=== PATIENT | male | born 1965 | race Caucasian/White ===

== ENCOUNTER 2018-03-07 14:16 | Outpatient (CLI) | payer BC, SELFPAY ==
[2018-03-07 14:41] LABS: Abs Immature Grans 0.02 k/cumm (0.0-0.09); Absolute Basophil Count 0.02 k/cumm (0.0-0.2); Absolute Eosinophil Count 0.67 k/cumm (0.0-0.7); Absolute Lymphocyte Count 1.57 k/cumm (1.2-3.4); Absolute Monocyte Count 0.39 k/cumm (0.11-0.7); Absolute Neutrophil Count 2.93 k/cumm (1.2-6.7); Basophils % 0.4; HCT 37.7 % (40.0-50.0); HGB 12.7 g/dL (13.5-17.5); Immature Grans % 0.4; Mean Corp. HGB Concentration 33.7 g/dL (32.0-36.0); Mean Corpuscular Hemoglobin 31.6 pg (27.0-33.0); Mean Corpuscular Volume 93.8 fL (80-95); Mean Platelet Volume 9.2 fL (8.0-11.0); Neutrophils % 52.2; Platelet Count 218 x1000/uL (130-400); RBC 4.02 m/cumm (4.50-6.00); RBC Distribution Width 13.6 % (11.8-14.1)
[2018-03-07 14:54] LABS: ALT 48 U/L (12-78); AST 29 U/L (15-37); Albumin 3.7 g/dL (3.4-5.0); Alkaline Phosphatase 120 U/L (46-116); Anion Gap 6.1 mmol/L (3-11); BUN 26 mg/dL (7-18); Bilirubin, Total 0.3 mg/dL (0.2-1.0); CO2 28.9 mmol/L (21.0-32.0); CREATININE 1.04 mg/dL (0.70-1.30); Calcium 8.8 mg/dL (8.5-10.1); Chloride 103 mmol/L (98-107); Glucose 90 mg/dL (70-100); Magnesium 1.4 mg/dL (1.8-2.4); Potassium 4.4 mmol/L (3.5-5.1); Sodium 138 mmol/L (136-145); Total Protein 7.4 g/dL (6.4-8.2)
== END 2018-03-07 14:36 ==
PROVIDERS: Visit Provider Nurse Practitioner Adult Health
DX: C34.91 Malignant neoplasm of unspecified part of right bronchus or lung (principal); J44.9 Chronic obstructive pulmonary disease, unspecified; S81.801A Unspecified open wound, right lower leg, initial encounter
CPT/HCPCS: 36415; 80053; 83735; 85025

== ENCOUNTER 2018-03-29 12:23 | Outpatient (CLI) | payer BC, SELFPAY ==
[2018-03-29 12:43] LABS: Abs Immature Grans 0.01 k/cumm (0.0-0.09); Absolute Basophil Count 0.02 k/cumm (0.0-0.2); Absolute Eosinophil Count 0.09 k/cumm (0.0-0.7); Absolute Lymphocyte Count 0.77 k/cumm (1.2-3.4); Absolute Monocyte Count 0.09 k/cumm (0.11-0.7); Absolute Neutrophil Count 0.69 k/cumm (1.2-6.7); Basophils % 1.2; Eosinophils % 5.4; HCT 33.5 % (40.0-50.0); HGB 11.6 g/dL (13.5-17.5); Immature Grans % 0.6; Lymphocytes % 46.1; Mean Corp. HGB Concentration 34.6 g/dL (32.0-36.0); Mean Corpuscular Hemoglobin 31.9 pg (27.0-33.0); Mean Platelet Volume 9.6 fL (8.0-11.0); Monocytes % 5.4; Neutrophils % 41.3; RBC 3.64 m/cumm (4.50-6.00); RBC Distribution Width 12.7 % (11.8-14.1)
[2018-03-29 13:01] LABS: White Blood Cell Count 1.67 k/cumm (4.4-10.8)
[2018-03-29 13:02] LABS: Platelet Count 106 x1000/uL (130-400)
[2018-03-29 13:03] LABS: ALT 36 U/L (12-78); AST 19 U/L (15-37); Albumin 3.4 g/dL (3.4-5.0); Alkaline Phosphatase 102 U/L (46-116); BUN 35 mg/dL (7-18); Bilirubin, Total 0.3 mg/dL (0.2-1.0); Calcium 8.5 mg/dL (8.5-10.1); Chloride 105 mmol/L (98-107); Diff Comment Diff Reviewed; Glucose 129 mg/dL (70-100); Magnesium 1.3 mg/dL (1.8-2.4); Potassium 3.8 mmol/L (3.5-5.1); RBC Morphology Normal; Sodium 141 mmol/L (136-145); Total Protein 6.7 g/dL (6.4-8.2)
== END 2018-03-29 12:43 ==
PROVIDERS: PCP Physician Assistant; Visit Provider Nurse Practitioner Adult Health
DX: S81.801A Unspecified open wound, right lower leg, initial encounter (principal); J44.9 Chronic obstructive pulmonary disease, unspecified; C34.91 Malignant neoplasm of unspecified part of right bronchus or lung
CPT/HCPCS: 36415; 80053; 83735; 85025

== ENCOUNTER 2018-04-15 09:34 | Outpatient (CLI) | payer BC, SELFPAY ==
[2018-04-15 10:01] LABS: Abs Immature Grans 0.14 k/cumm (0.0-0.09); HCT 37.7 % (40.0-50.0); HGB 12.7 g/dL (13.5-17.5); Mean Corp. HGB Concentration 33.7 g/dL (32.0-36.0); Mean Corpuscular Hemoglobin 31.1 pg (27.0-33.0); Mean Corpuscular Volume 92.4 fL (80-95); Mean Platelet Volume 9.4 fL (8.0-11.0); Platelet Count 263 x1000/uL (130-400); RBC 4.08 m/cumm (4.50-6.00); RBC Distribution Width 13.7 % (11.8-14.1); White Blood Cell Count 5.63 k/cumm (4.4-10.8)
[2018-04-15 10:14] LABS: ALT 34 U/L (12-78); AST 30 U/L (15-37); Albumin 3.5 g/dL (3.4-5.0); Alkaline Phosphatase 110 U/L (46-116); Anion Gap 7.6 mmol/L (3-11); BUN 24 mg/dL (7-18); Bilirubin, Total 0.2 mg/dL (0.2-1.0); CO2 31.4 mmol/L (21.0-32.0); CREATININE 1.09 mg/dL (0.70-1.30); Calcium 8.7 mg/dL (8.5-10.1); Chloride 101 mmol/L (98-107); Glucose 96 mg/dL (70-100); Magnesium 1.7 mg/dL (1.8-2.4); Potassium 4.1 mmol/L (3.5-5.1); Sodium 140 mmol/L (136-145); Total Protein 7.4 g/dL (6.4-8.2)
[2018-04-15 10:27] LABS: Absolute Basophil Count 0.06 k/cumm (0.0-0.2); Absolute Eosinophil Count 0.06 k/cumm (0.0-0.7); Absolute Lymphocyte Count 0.73 k/cumm (1.2-3.4); Absolute Monocyte Count 0.56 k/cumm (0.11-0.7); Absolute Neutrophil Count 4.17 k/cumm (1.2-6.7); Diff Comment Manual Differential; RBC Morphology Normal
== END 2018-04-15 09:54 ==
PROVIDERS: PCP Physician Assistant; Visit Provider Nurse Practitioner Adult Health
DX: C34.91 Malignant neoplasm of unspecified part of right bronchus or lung (principal); S81.801A Unspecified open wound, right lower leg, initial encounter; J44.9 Chronic obstructive pulmonary disease, unspecified
CPT/HCPCS: 36415; 80053; 83735; 85025

== ENCOUNTER 2018-04-26 14:07 | Outpatient (CLI) | payer BC, SELFPAY ==
[2018-04-26 14:32] LABS: Absolute Basophil Count 0.01 k/cumm (0.0-0.2); Absolute Eosinophil Count 0.05 k/cumm (0.0-0.7); HCT 27.8 % (40.0-50.0); HGB 9.8 g/dL (13.5-17.5); Mean Corp. HGB Concentration 35.3 g/dL (32.0-36.0); Mean Corpuscular Hemoglobin 31.7 pg (27.0-33.0); Mean Platelet Volume 10.4 fL (8.0-11.0); RBC 3.09 m/cumm (4.50-6.00); RBC Distribution Width 12.6 % (11.8-14.1)
[2018-04-26 14:42] LABS: ALT 45 U/L (12-78); AST 30 U/L (15-37); Albumin 3.1 g/dL (3.4-5.0); Alkaline Phosphatase 97 U/L (46-116); Anion Gap 7.4 mmol/L (3-11); BUN 20 mg/dL (7-18); Bilirubin, Total 0.2 mg/dL (0.2-1.0); CO2 29.6 mmol/L (21.0-32.0); CREATININE 0.91 mg/dL (0.70-1.30); Calcium 8.5 mg/dL (8.5-10.1); Chloride 102 mmol/L (98-107); Glucose 107 mg/dL (70-100); Magnesium 1.4 mg/dL (1.8-2.4); Potassium 4.4 mmol/L (3.5-5.1); Sodium 139 mmol/L (136-145); Total Protein 6.4 g/dL (6.4-8.2)
[2018-04-26 14:57] LABS: Absolute Neutrophil Count 0.35 k/cumm (1.2-6.7); Platelet Count 50 x1000/uL (130-400); White Blood Cell Count 0.69 k/cumm (4.4-10.8)
[2018-04-26 14:58] LABS: Absolute Lymphocyte Count 0.22 k/cumm (1.2-3.4); Absolute Monocyte Count 0.06 k/cumm (0.11-0.7); Diff Comment Manual Differential; RBC Morphology Normal
== END 2018-04-26 14:27 ==
PROVIDERS: PCP Physician Assistant; Visit Provider Nurse Practitioner Adult Health
DX: C34.91 Malignant neoplasm of unspecified part of right bronchus or lung (principal); J44.9 Chronic obstructive pulmonary disease, unspecified; S81.801A Unspecified open wound, right lower leg, initial encounter
CPT/HCPCS: 36415; 80053; 83735; 85025

== ENCOUNTER 2018-05-03 12:29 | Outpatient (CLI) | payer BC, SELFPAY ==
[2018-05-03 13:06] LABS: HCT 29.6 % (40.0-50.0); HGB 10.4 g/dL (13.5-17.5); Mean Corp. HGB Concentration 35.1 g/dL (32.0-36.0); Mean Corpuscular Hemoglobin 31.7 pg (27.0-33.0); Mean Corpuscular Volume 90.2 fL (80-95); Mean Platelet Volume 9.1 fL (8.0-11.0); Platelet Count 150 x1000/uL (130-400); RBC 3.28 m/cumm (4.50-6.00); RBC Distribution Width 13.4 % (11.8-14.1)
[2018-05-03 13:19] LABS: ALT 36 U/L (12-78); AST 30 U/L (15-37); Albumin 3.2 g/dL (3.4-5.0); Alkaline Phosphatase 114 U/L (46-116); Anion Gap 7.3 mmol/L (3-11); BUN 21 mg/dL (7-18); Bilirubin, Total 0.4 mg/dL (0.2-1.0); CO2 30.7 mmol/L (21.0-32.0); Calcium 8.8 mg/dL (8.5-10.1); Chloride 100 mmol/L (98-107); Glucose 76 mg/dL (70-100); Potassium 4.2 mmol/L (3.5-5.1); Sodium 138 mmol/L (136-145); Total Protein 6.9 g/dL (6.4-8.2)
[2018-05-03 13:20] LABS: INR 1.8 (1.0-3.5); Prothrombin Time 17.6 sec (9.3-10.8)
[2018-05-03 13:55] LABS: White Blood Cell Count 0.77 k/cumm (4.4-10.8)
[2018-05-03 13:56] LABS: Diff Comment Manual Differential; Polychromasia Present
[2018-05-03 13:57] LABS: Absolute Basophil Count 0.02 k/cumm (0.0-0.2); Absolute Eosinophil Count 0.05 k/cumm (0.0-0.7); Absolute Lymphocyte Count 0.32 k/cumm (1.2-3.4); Absolute Monocyte Count 0.22 k/cumm (0.11-0.7); Absolute Neutrophil Count 0.15 k/cumm (1.2-6.7); Atypical Lymphocytes % 2
[2018-05-03 16:01] LABS: Magnesium 1.7 mg/dL (1.8-2.4)
[2018-05-03 23:03] LABS: Nucleated RBC 6 /100WBC
== END 2018-05-03 12:49 ==
PROVIDERS: PCP Physician Assistant; Visit Provider Nurse Practitioner Adult Health
DX: C34.91 Malignant neoplasm of unspecified part of right bronchus or lung (principal); S81.801A Unspecified open wound, right lower leg, initial encounter; J44.9 Chronic obstructive pulmonary disease, unspecified
CPT/HCPCS: 36415; 80053; 83735; 85025; 85610

== ENCOUNTER 2018-05-13 12:39 | Outpatient (CLI) | payer BC, SELFPAY ==
[2018-05-13 13:14] LABS: Abs Immature Grans 0.01 k/cumm (0.0-0.09); Absolute Basophil Count 0.03 k/cumm (0.0-0.2); Absolute Eosinophil Count 0.04 k/cumm (0.0-0.7); Absolute Lymphocyte Count 0.75 k/cumm (1.2-3.4); Absolute Monocyte Count 0.58 k/cumm (0.11-0.7); Basophils % 0.8; HCT 31.2 % (40.0-50.0); HGB 10.7 g/dL (13.5-17.5); Immature Grans % 0.3; Lymphocytes % 19.2; Mean Corp. HGB Concentration 34.3 g/dL (32.0-36.0); Mean Corpuscular Volume 93.4 fL (80-95); Mean Platelet Volume 9.3 fL (8.0-11.0); Monocytes % 14.8; Neutrophils % 63.9; Platelet Count 233 x1000/uL (130-400); RBC 3.34 m/cumm (4.50-6.00); RBC Distribution Width 15.2 % (11.8-14.1); White Blood Cell Count 3.91 k/cumm (4.4-10.8)
[2018-05-13 13:32] LABS: ALT 35 U/L (12-78); AST 21 U/L (15-37); Albumin 3.3 g/dL (3.4-5.0); Alkaline Phosphatase 103 U/L (46-116); BUN 27 mg/dL (7-18); Bilirubin, Total 0.2 mg/dL (0.2-1.0); CREATININE 1.06 mg/dL (0.70-1.30); Chloride 103 mmol/L (98-107); Glucose 99 mg/dL (70-100); Magnesium 1.5 mg/dL (1.8-2.4); Potassium 4.4 mmol/L (3.5-5.1); Sodium 142 mmol/L (136-145); Total Protein 6.9 g/dL (6.4-8.2)
== END 2018-05-13 12:59 ==
PROVIDERS: PCP Physician Assistant; Visit Provider Nurse Practitioner Adult Health
DX: C34.91 Malignant neoplasm of unspecified part of right bronchus or lung (principal); S81.801A Unspecified open wound, right lower leg, initial encounter; J44.9 Chronic obstructive pulmonary disease, unspecified
CPT/HCPCS: 36415; 80053; 83735; 85025

== ENCOUNTER 2018-05-24 14:14 | Outpatient (CLI) | payer BC, SELFPAY ==
[2018-05-24 14:33] LABS: HCT 26.9 % (40.0-50.0); Mean Corp. HGB Concentration 33.5 g/dL (32.0-36.0); Mean Corpuscular Hemoglobin 31.4 pg (27.0-33.0); Mean Corpuscular Volume 93.7 fL (80-95); Mean Platelet Volume 10.6 fL (8.0-11.0); RBC 2.87 m/cumm (4.50-6.00); RBC Distribution Width 14.8 % (11.8-14.1)
[2018-05-24 15:04] LABS: Platelet Count 57 x1000/uL (130-400)
[2018-05-24 15:07] LABS: White Blood Cell Count 1.45 k/cumm (4.4-10.8)
[2018-05-24 15:08] LABS: Absolute Basophil Count 0.03 k/cumm (0.0-0.2); Absolute Lymphocyte Count 0.49 k/cumm (1.2-3.4); Absolute Neutrophil Count 0.44 k/cumm (1.2-6.7); Atypical Lymphocytes % 1; Promyelocytes % 1 %
[2018-05-24 15:09] LABS: Anisocytosis 1+; Diff Comment Manual Differential; Nucleated RBC 12 /100WBC; Other Cells 3
[2018-05-24 15:10] LABS: Polychromasia Present
[2018-05-24 15:34] LABS: ALT 30 U/L (12-78); AST 14 U/L (15-37); Albumin 3.6 g/dL (3.4-5.0); Alkaline Phosphatase 117 U/L (46-116); Anion Gap 8.5 mmol/L (3-11); BUN 36 mg/dL (7-18); Bilirubin, Total 0.5 mg/dL (0.2-1.0); CO2 30.5 mmol/L (21.0-32.0); CREATININE 1.37 mg/dL (0.70-1.30); Calcium 8.7 mg/dL (8.5-10.1); Chloride 103 mmol/L (98-107); Estimated GFR 54.15 (mL/min/1.73m2); Glucose 108 mg/dL (70-100); Magnesium 1.3 mg/dL (1.8-2.4); Potassium 4.5 mmol/L (3.5-5.1); Sodium 142 mmol/L (136-145); Total Protein 6.6 g/dL (6.4-8.2)
== END 2018-05-24 14:34 ==
PROVIDERS: PCP Physician Assistant; Visit Provider Nurse Practitioner Adult Health
DX: C34.91 Malignant neoplasm of unspecified part of right bronchus or lung (principal); J44.9 Chronic obstructive pulmonary disease, unspecified; S81.801A Unspecified open wound, right lower leg, initial encounter
CPT/HCPCS: 36415; 80053; 83735; 85025

== ENCOUNTER 2018-06-03 07:39 | Outpatient (CLI) | payer BC, SELFPAY ==
[2018-06-03 07:57] LABS: Abs Immature Grans 0.06 k/cumm (0.0-0.09); Absolute Basophil Count 0.03 k/cumm (0.0-0.2); Absolute Eosinophil Count 0.05 k/cumm (0.0-0.7); Absolute Lymphocyte Count 0.81 k/cumm (1.2-3.4); Absolute Monocyte Count 0.95 k/cumm (0.11-0.7); Absolute Neutrophil Count 5.62 k/cumm (1.2-6.7); Basophils % 0.4; Eosinophils % 0.7; HCT 24.8 % (40.0-50.0); HGB 8.3 g/dL (13.5-17.5); Immature Grans % 0.8; Lymphocytes % 10.8; Mean Corp. HGB Concentration 33.5 g/dL (32.0-36.0); Mean Corpuscular Hemoglobin 32.5 pg (27.0-33.0); Mean Corpuscular Volume 97.3 fL (80-95); Mean Platelet Volume 9.1 fL (8.0-11.0); Monocytes % 12.6; Neutrophils % 74.7; Platelet Count 259 x1000/uL (130-400); RBC 2.55 m/cumm (4.50-6.00); RBC Distribution Width 16.5 % (11.8-14.1); White Blood Cell Count 7.52 k/cumm (4.4-10.8)
[2018-06-03 08:09] LABS: ALT 20 U/L (12-78); AST 17 U/L (15-37); Albumin 3.3 g/dL (3.4-5.0); Alkaline Phosphatase 129 U/L (46-116); Anion Gap 9.6 mmol/L (3-11); BUN 18 mg/dL (7-18); Bilirubin, Total 0.4 mg/dL (0.2-1.0); CO2 28.4 mmol/L (21.0-32.0); CREATININE 1.17 mg/dL (0.70-1.30); Calcium 9.1 mg/dL (8.5-10.1); Chloride 99 mmol/L (98-107); Glucose 134 mg/dL (70-100); Magnesium 1.7 mg/dL (1.8-2.4); Potassium 4.6 mmol/L (3.5-5.1); Sodium 137 mmol/L (136-145); Total Protein 7.3 g/dL (6.4-8.2)
== END 2018-06-03 07:59 ==
PROVIDERS: PCP Physician Assistant; Visit Provider Nurse Practitioner Adult Health
DX: C34.91 Malignant neoplasm of unspecified part of right bronchus or lung (principal); S81.801A Unspecified open wound, right lower leg, initial encounter; J44.9 Chronic obstructive pulmonary disease, unspecified
CPT/HCPCS: 36415; 80053; 83735; 85025

== ENCOUNTER 2018-06-13 10:45 | Outpatient (CLI) | payer BC, SELFPAY ==
[2018-06-13 11:23] LABS: ALT 24 U/L (12-78); AST 14 U/L (15-37); Albumin 3.4 g/dL (3.4-5.0); Alkaline Phosphatase 149 U/L (46-116); Anion Gap 8.3 mmol/L (3-11); BUN 27 mg/dL (7-18); Bilirubin, Total 0.3 mg/dL (0.2-1.0); CO2 30.7 mmol/L (21.0-32.0); CREATININE 1.08 mg/dL (0.70-1.30); Chloride 104 mmol/L (98-107); Glucose 106 mg/dL (70-100); Sodium 143 mmol/L (136-145); Total Protein 6.8 g/dL (6.4-8.2)
[2018-06-13 11:24] LABS: Abs Immature Grans 0.01 k/cumm (0.0-0.09); Absolute Basophil Count 0.03 k/cumm (0.0-0.2); Absolute Eosinophil Count 0.03 k/cumm (0.0-0.7); Absolute Lymphocyte Count 0.45 k/cumm (1.2-3.4); Absolute Monocyte Count 0.35 k/cumm (0.11-0.7); Absolute Neutrophil Count 1.85 k/cumm (1.2-6.7); Basophils % 1.1; Eosinophils % 1.1; HCT 27.6 % (40.0-50.0); HGB 9.1 g/dL (13.5-17.5); Immature Grans % 0.4; Lymphocytes % 16.5; Mean Corpuscular Hemoglobin 31.2 pg (27.0-33.0); Mean Corpuscular Volume 94.5 fL (80-95); Mean Platelet Volume 10.2 fL (8.0-11.0); Monocytes % 12.9; Platelet Count 100 x1000/uL (130-400); RBC 2.92 m/cumm (4.50-6.00); RBC Distribution Width 15.7 % (11.8-14.1); White Blood Cell Count 2.72 k/cumm (4.4-10.8)
[2018-06-13 11:47] LABS: Hypochromasia 1+; Polychromasia Present
[2018-06-13 11:48] LABS: Diff Comment PLT Morph Reviewed
== END 2018-06-13 11:05 ==
PROVIDERS: PCP Physician Assistant; Visit Provider Nurse Practitioner Adult Health
DX: C34.91 Malignant neoplasm of unspecified part of right bronchus or lung (principal); S81.801A Unspecified open wound, right lower leg, initial encounter; J44.9 Chronic obstructive pulmonary disease, unspecified
CPT/HCPCS: 36415; 80053; 85025

== ENCOUNTER 2018-09-26 00:20 | Outpatient (CLI) | payer BC, SELFPAY ==
[2018-09-26 14:07] LABS: Abs Immature Grans 0.02 k/cumm (0.0-0.09); Absolute Basophil Count 0.01 k/cumm (0.0-0.2); Absolute Eosinophil Count 0.37 k/cumm (0.0-0.7); Absolute Lymphocyte Count 0.62 k/cumm (1.2-3.4); Absolute Monocyte Count 0.65 k/cumm (0.11-0.7); Absolute Neutrophil Count 3.06 k/cumm (1.2-6.7); Basophils % 0.2; Eosinophils % 7.8; HCT 30.1 % (40.0-50.0); Immature Grans % 0.4; Lymphocytes % 13.1; Mean Corp. HGB Concentration 33.2 g/dL (32.0-36.0); Mean Corpuscular Hemoglobin 31.2 pg (27.0-33.0); Mean Corpuscular Volume 93.8 fL (80-95); Mean Platelet Volume 9.1 fL (8.0-11.0); Monocytes % 13.7; Neutrophils % 64.8; Platelet Count 210 x1000/uL (130-400); RBC 3.21 m/cumm (4.50-6.00); RBC Distribution Width 12.7 % (11.8-14.1); White Blood Cell Count 4.73 k/cumm (4.4-10.8)
[2018-09-26 14:17] LABS: ALT 17 U/L (12-78); AST 21 U/L (15-37); Albumin 2.6 g/dL (3.4-5.0); Alkaline Phosphatase 148 U/L (46-116); Anion Gap 9.9 mmol/L (3-11); BUN 21 mg/dL (7-18); Bilirubin, Total 0.2 mg/dL (0.2-1.0); CO2 28.1 mmol/L (21.0-32.0); CREATININE 1.11 mg/dL (0.70-1.30); Calcium 8.8 mg/dL (8.5-10.1); Chloride 98 mmol/L (98-107); Glucose 101 mg/dL (70-100); LDH 233 U/L (85-227); Sodium 136 mmol/L (136-145); Total Protein 7.8 g/dL (6.4-8.2)
[2018-09-26] MEDS: Omnipaque 350 MG/ML 100 ML BTL IJ (14:38)
--- NOTE | 2018-09-26 14:42 | DI.CT_ITS ---
SYMPTOM/DIAGNOSIS: LIMITED STAGE SMALL CELL LUNG CA, S/P CHEMO, F/U CHEST CT: CT examination of the chest was performed with intravenous infusion of 70 cc's of Omnipaque 350. Images obtained through the upper abdomen show unremarkable appearance of visualized portions of liver, spleen and pancreas. No biliary dilatation is seen. Visualized portions of the kidneys are unremarkable. There is a 23 mm. in diameter nodule of the left adrenal, this appears to have increased in size from about 19 mm. in greatest diameter on previous CT of 07/03/18, suspicious for metastatic disease. Previously noted spiculated 3 cm. right intrapulmonary lesion grossly unchanged in size. There are multiple new areas of right lung ground glass and consolidative opacities involving right upper lobe and small portions of right middle lobe and right lower lobe superiorly. Correlation requested regarding interval radiation therapy. There is volume loss of the right lung now present which was not previously present. No dominant mediastinal or hilar adenopathy is seen. No evidence of pulmonary embolic disease or other major vascular abnormality. Tracheobronchial tree appears intact. No pleural effusion. No gross axillary or supraclavicular adenopathy. CONCLUSION: Interval development of ground glass and consolidative opacities of right upper lung field, correlation requested regarding interval radiation therapy. No gross interval change in right perihilar intrapulmonary mass in comparison with previous CT of 07/03/18. This measures about 19 mm. on the current examination on axial images. No evidence of metastatic disease in the chest. Interval increase in size of left adrenal nodule from 19 to 23 mm. in diameter, the possibility of metastatic disease is raised.
== END 2018-09-26 00:40 ==
PROVIDERS: PCP Physician Assistant; Visit Provider Internal Medicine Hematology & Oncology
DX: C34.90 Malignant neoplasm of unspecified part of unspecified bronchus or lung (principal); C34.91 Malignant neoplasm of unspecified part of right bronchus or lung
CPT/HCPCS: 36415; 80053; 71260; 83615; 85025; J3490

== ENCOUNTER 2018-10-03 11:41 | Outpatient (CLI) | payer BC, SELFPAY ==
[2018-10-03 11:58] LABS: Abs Immature Grans 0.02 k/cumm (0.0-0.09); Absolute Basophil Count 0.01 k/cumm (0.0-0.2); Absolute Eosinophil Count 0.29 k/cumm (0.0-0.7); Absolute Lymphocyte Count 0.51 k/cumm (1.2-3.4); Absolute Monocyte Count 0.41 k/cumm (0.11-0.7); Absolute Neutrophil Count 3.09 k/cumm (1.2-6.7); Basophils % 0.2; Eosinophils % 6.7; HCT 31.9 % (40.0-50.0); HGB 10.5 g/dL (13.5-17.5); Immature Grans % 0.5; Lymphocytes % 11.8; Mean Corp. HGB Concentration 32.9 g/dL (32.0-36.0); Mean Corpuscular Hemoglobin 30.7 pg (27.0-33.0); Mean Corpuscular Volume 93.3 fL (80-95); Mean Platelet Volume 8.8 fL (8.0-11.0); Monocytes % 9.5; Neutrophils % 71.3; Platelet Count 241 x1000/uL (130-400); RBC 3.42 m/cumm (4.50-6.00); White Blood Cell Count 4.33 k/cumm (4.4-10.8)
[2018-10-03 12:21] LABS: ALT 18 U/L (12-78); AST 20 U/L (15-37); Albumin 2.7 g/dL (3.4-5.0); Alkaline Phosphatase 145 U/L (46-116); Anion Gap 9.6 mmol/L (3-11); BUN 27 mg/dL (7-18); Bilirubin, Total 0.3 mg/dL (0.2-1.0); CO2 29.4 mmol/L (21.0-32.0); CREATININE 1.19 mg/dL (0.70-1.30); Calcium 8.9 mg/dL (8.5-10.1); Chloride 97 mmol/L (98-107); Glucose 115 mg/dL (70-100); LDH 228 U/L (85-227); Potassium 4.5 mmol/L (3.5-5.1); Sodium 136 mmol/L (136-145); Total Protein 7.8 g/dL (6.4-8.2)
== END 2018-10-03 12:01 ==
PROVIDERS: PCP Physician Assistant; Visit Provider Internal Medicine Hematology & Oncology
DX: C34.91 Malignant neoplasm of unspecified part of right bronchus or lung (principal)
CPT/HCPCS: 36415; 80053; 83615; 85025

== ENCOUNTER 2019-01-03 01:42 | Outpatient (CLI) | payer BC, SELFPAY ==
[2019-01-03 09:58] LABS: Abs Immature Grans 0.02 k/cumm (0.0-0.09); Absolute Basophil Count 0.02 k/cumm (0.0-0.2); Absolute Eosinophil Count 0.21 k/cumm (0.0-0.7); Absolute Neutrophil Count 3.05 k/cumm (1.2-6.7); Basophils % 0.4; Eosinophils % 4.4; HCT 33.1 % (40.0-50.0); HGB 10.8 g/dL (13.5-17.5); Immature Grans % 0.4; Lymphocytes % 20.8; Mean Corp. HGB Concentration 32.6 g/dL (32.0-36.0); Mean Corpuscular Hemoglobin 30.3 pg (27.0-33.0); Mean Platelet Volume 9.4 fL (8.0-11.0); Monocytes % 10.4; Neutrophils % 63.6; Platelet Count 247 x1000/uL (130-400); RBC 3.56 m/cumm (4.50-6.00); RBC Distribution Width 14.9 % (11.8-14.1)
[2019-01-03 10:09] LABS: INR 1.7 (0.9-1.1); Prothrombin Time 17.5 sec (9.3-11.0)
[2019-01-03 10:13] LABS: ALT 16 U/L (12-78); AST 14 U/L (15-37); Alkaline Phosphatase 130 U/L (46-116); Anion Gap 10.6 mmol/L (3-11); BUN 28 mg/dL (7-18); Bilirubin, Total 0.2 mg/dL (0.2-1.0); CO2 25.4 mmol/L (21.0-32.0); CREATININE 1.09 mg/dL (0.70-1.30); Calcium 8.9 mg/dL (8.5-10.1); Chloride 105 mmol/L (98-107); Glucose 94 mg/dL (70-100); Magnesium 1.6 mg/dL (1.8-2.4); Potassium 3.9 mmol/L (3.5-5.1); Sodium 141 mmol/L (136-145); Total Protein 7.6 g/dL (6.4-8.2)
--- NOTE | 2019-01-03 10:44 | DI.CT_ITS ---
SYMPTOMS/DIAGNOSIS: SMALL CELL LUNG CANCER RT, C34.91, RESTAGING CHEST CT: Comparison is made with 2Jan19 and [id number]. A post contrast exam was performed. There is increased right upper lobe volume loss when compared with the previous exam and increased right upper lobe atelectasis. The previously noted right upper lobe mass is obscured. The findings presumably represent post radiation change. There is a minimal amount of pleural fluid seen around the right upper lobe. No adenopathy is seen. There are minimal patchy densities in the right lower lobe which could represent pneumonitis. There is no pericardial effusion. The lungs again show hyperinflation. There is a stable relatively low density left adrenal nodule. No lytic or blastic bony lesions are seen. IMPRESSION: Interval increase in scarring and atelectasis in the right upper lobe which obscures the previously noted mass. 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
[2019-01-03] MEDS: Omnipaque 350 MG/ML 100 ML BTL 70 ML IJ (10:46)
== END 2019-01-03 02:02 ==
PROVIDERS: PCP Physician Assistant; Visit Provider Nurse Practitioner Adult Health
DX: C34.91 Malignant neoplasm of unspecified part of right bronchus or lung (principal); J98.11 Atelectasis; Z92.3 Personal history of irradiation; S81.801A Unspecified open wound, right lower leg, initial encounter; J44.9 Chronic obstructive pulmonary disease, unspecified
CPT/HCPCS: 80053; 71260; 83735; 85025; 85610; J3490

== ENCOUNTER 2019-05-09 03:36 | Outpatient (CLI) | payer BC, SELFPAY ==
[2019-05-09] MEDS: Breeza Beverage 473 ML BTL PO ×2 (08:23→08:24)
[2019-05-09] MEDS: Omnipaque 350 MG/ML 50 ML BTL PO (08:24)
[2019-05-09 08:51] LABS: Absolute Basophil Count 0.01 k/cumm (0.0-0.2); Absolute Eosinophil Count 0.18 k/cumm (0.0-0.7); Absolute Lymphocyte Count 0.82 k/cumm (1.2-3.4); Absolute Monocyte Count 0.39 k/cumm (0.11-0.7); Absolute Neutrophil Count 2.67 k/cumm (1.2-6.7); Basophils % 0.2; Eosinophils % 4.4; HCT 37.3 % (40.0-50.0); HGB 12.5 g/dL (13.5-17.5); Lymphocytes % 20.1; Mean Corp. HGB Concentration 33.5 g/dL (32.0-36.0); Mean Corpuscular Hemoglobin 31.9 pg (27.0-33.0); Mean Corpuscular Volume 95.2 fL (80-95); Monocytes % 9.6; Neutrophils % 65.7; Platelet Count 192 x1000/uL (130-400); RBC 3.92 m/cumm (4.50-6.00); RBC Distribution Width 13.9 % (11.8-14.1); White Blood Cell Count 4.07 k/cumm (4.4-10.8)
[2019-05-09 09:13] LABS: ALT 34 U/L (16-63); AST 25 U/L (15-37); Albumin 3.7 g/dL (3.4-5.0); Alkaline Phosphatase 113 U/L (46-116); BUN 25 mg/dL (7-18); Bilirubin, Total 0.4 mg/dL (0.2-1.0); CREATININE 1.18 mg/dL (0.70-1.30); Calcium 8.8 mg/dL (8.5-10.1); Chloride 101 mmol/L (98-107); Glucose 90 mg/dL (70-100); Potassium 3.9 mmol/L (3.5-5.1); Sodium 139 mmol/L (136-145); Total Protein 7.6 g/dL (6.4-8.2)
[2019-05-09] MEDS: Omnipaque 350 MG/ML 100 ML BTL IV (09:50)
--- NOTE | 2019-05-09 10:30 | DI.CT_ITS ---
EXAM: CT HEAD WO/W CLINICAL HISTORY: F/U SMALL CELL LUNG CA, C34.91, RESTAGING EXAM TECHNIQUE: Before and after IV contrast. COMPARISON: No exams were available for comparison FINDINGS: No intracranial hemorrhage, mass or infarct is seen. There are no abnormal enhancing lesions. The ventricles are normal in size. No skull fracture, lytic or blastic bony lesions are seen. Visualiz ed portions of the sinuses and mastoid air cells appear clear. IMPRESSION: Negative head CT. No evidence of metastatic disease.
--- NOTE | 2019-05-09 10:30 | DI.CT_ITS ---
EXAM: CT CHEST/ABD/PEL W CLINICAL HISTORY: F/U SMALL CELL LUNG CA,C34.91,RESTAGING EXAM TECHNIQUE: IV contrast. COMPARISON: CT CHEST ABDOMEN PELVIS W CONTRAST (GENERIC) from 07/03/2018 CT CHEST W from 01/03/2019 FINDINGS: CHEST: There is right upper lobe volume loss. There are linear areas of scarring seen in the right upper lobe. No focal mass is identified. There is some pleural thickening posteriorly in the right up per lobe. No pleural or pericardial effusions are identified. Arteries are well opacified with IV con trast and no pulmonary emboli are seen. There is no evidence of aortic dissection. No enlarged lymph nodes are seen. No lytic or blastic bony lesions are identified. ABDOMEN AND PELVIS: A small calcification is again noted in the posterior right lobe of the liver. Th ere is stable minimal intrahepatic biliary dilatation and stable dilatation of the common bile duct. No obstructing stone or mass is seen. The gallbladder is unremarkable. A left adrenal adenoma is unch anged. An area of scarring is noted anteriorly in the right kidney, unchanged. No hydronephrosis or renal calculi are identified. There are atherosclerotic changes of the abdominal aorta. There is mild aneurysmal dilatation distally with a diameter of 2.7 cm. No bowel dilatation or inflammatory change is seen. Diverticulosis is noted of the sigmoid region. The appendix appears normal. A large left fa tty containing inguinal hernia appears unchanged. No adenopathy is seen. L5 pars defects and grade 1- 2 spondylolisthesis appears stable. There are degenerative disc changes but no suspicious lytic or bl astic bony lesions. IMPRESSION: Continued improvement and post treatment changes of the right upper lobe. No mass is visible. There i s no evidence of metastatic disease in the chest, abdomen or pelvis.
== END 2019-05-09 03:56 ==
PROVIDERS: PCP Physician Assistant; Visit Provider Internal Medicine Hematology & Oncology
DX: C34.91 Malignant neoplasm of unspecified part of right bronchus or lung (principal); Z12.89 Encounter for screening for malignant neoplasm of other sites; K76.89 Other specified diseases of liver; K40.90 Unilateral inguinal hernia, without obstruction or gangrene, not specified as recurrent
CPT/HCPCS: 74177; 80053; 70470; 71260; 85025; J3490; Q9967

== ENCOUNTER 2019-08-07 00:57 | Outpatient (CLI) | payer BC, SELFPAY ==
--- NOTE | 2019-08-07 08:54 | DI.CT_ITS ---
EXAM: CT CHEST/ABD/PEL W CLINICAL HISTORY: SMALL CELL LUNG CANCER RT C34.91 TECHNIQUE: CT examination of the chest, abdomen and pelvis was performed with bolus infusion of 100 cc of Omnipaque 350 and ingestion of dilute barium. COMPARISON: CT CHEST/ABD/PEL W from 05/09/2019 FINDINGS: The current examination is compared with prior study of 05/09/19, right upper lobe lung carcinoma with posttherapy changes again noted with no gross interval change in appearance on today's examination. There are 2 new nodules in the left lower lobe peripherally adjacent to the major fissure, these amilcar ure roughly 6 millimeters in diameter. New metastatic lesion not excluded. No pleural effusion. No gross adenopathy of the allen or mediastinum. No axillary or supraclavicular adenopathy. No evidenc e of pulmonary embolic disease. No major abnormality of the thoracic aorta or its branches. Liver and spleen appear normal. Incidental small hiatal hernia noted. Pancreas appears normal. Mil dly dilated common hepatic duct, nonspecific, at 10 millimeters. MRCP suggested for further evaluati on. Note is made of a 20 millimeter in diameter left adrenal nodule. This is attenuation below 10 H [place] units, unchanged from prior study, presumed adenoma. There is borderline diameter of the distal abdominal aorta at about 267 millimeters, left common ilan c measures about 15 millimeters in diameter, right common iliac about 14 millimeters in diameter. Th ere is large left fat containing inguinal hernia. No abdominal or pelvic adenopathy identified. Kidneys appear normal. No focal bowel pathology. No suspicious bony lesion identified on scanning of the chest, abdomen and pelvis. IMPRESSION: 1. Question new pulmonary nodules, left lower lobe, metastatic disease should be considered. 2. Stable left adrenal nodule. 3. Mild dilatation common bile duct, MRCP correlation suggested if clinically appropriate.
[2019-08-07] MEDS: Breeza Beverage 473 ML BTL PO ×2 (09:09→09:10)
[2019-08-07] MEDS: Omnipaque 350 MG/ML 50 ML BTL IJ (09:10)
[2019-08-07 09:30] LABS: Absolute Basophil Count 0.02 k/cumm (0.0-0.2); Absolute Eosinophil Count 0.21 k/cumm (0.0-0.7); Absolute Lymphocyte Count 0.82 k/cumm (1.2-3.4); Absolute Neutrophil Count 3.17 k/cumm (1.2-6.7); Basophils % 0.4; Eosinophils % 4.4; HCT 36.1 % (40.0-50.0); HGB 12.2 g/dL (13.5-17.5); Lymphocytes % 17.4; Mean Corp. HGB Concentration 33.8 g/dL (32.0-36.0); Mean Corpuscular Hemoglobin 32.3 pg (27.0-33.0); Mean Corpuscular Volume 95.5 fL (80-95); Mean Platelet Volume 9.5 fL (8.0-11.0); Monocytes % 10.6; Neutrophils % 67.2; Platelet Count 188 x1000/uL (130-400); RBC 3.78 m/cumm (4.50-6.00); RBC Distribution Width 13.3 % (11.8-14.1); White Blood Cell Count 4.72 k/cumm (4.4-10.8)
[2019-08-07 09:48] LABS: ALT 23 U/L (16-63); AST 23 U/L (15-37); Albumin 3.5 g/dL (3.4-5.0); Alkaline Phosphatase 118 U/L (46-116); Anion Gap 5.1 mmol/L (3-11); BUN 23 mg/dL (7-18); Bilirubin, Total 0.4 mg/dL (0.2-1.0); CO2 32.9 mmol/L (21.0-32.0); CREATININE 1.31 mg/dL (0.70-1.30); Calcium 8.8 mg/dL (8.5-10.1); Chloride 100 mmol/L (98-107); Estimated GFR 56.81 (mL/min/1.73m2); Glucose 95 mg/dL (74-106); Potassium 4.9 mmol/L (3.5-5.1); Sodium 138 mmol/L (136-145); Total Protein 7.4 g/dL (6.4-8.2)
[2019-08-07] MEDS: Omnipaque 350 MG/ML 100 ML BTL IJ (10:32)
== END 2019-08-07 01:17 ==
PROVIDERS: PCP Physician Assistant; Visit Provider Internal Medicine Hematology & Oncology
DX: C34.91 Malignant neoplasm of unspecified part of right bronchus or lung (principal); R91.8 Other nonspecific abnormal finding of lung field; K83.8 Other specified diseases of biliary tract; K44.9 Diaphragmatic hernia without obstruction or gangrene
CPT/HCPCS: 74177; 80053; 71260; 85025; J3490; Q9967

== ENCOUNTER 2019-11-07 01:40 | Outpatient (CLI) | payer BC, SELFPAY ==
--- NOTE | 2019-11-07 | DI.CT_ITS ---
EXAM: CT HEAD WO/W CLINICAL HISTORY: SMALL CELL LUNG CA, C34.91, ? METS. TECHNIQUE: Imaging Protocol: Axial computed tomography images with coronal and sagittal reformatted images were created and reviewed. CONTRAST MATERIAL: Intravenous: Omnipaque 350 Contrast volume:100 cc contrast route:IV - COMPARISON: CT CT HEAD WO/W from 05/09/2019 FINDINGS: Ventricles and Extra axial spaces: Normal in size and morphology for the patient's age. Hemorrhage: None. Cerebral parenchyma: There is now a mass centered in the left thalamus measuring 2.2 cm in diameter. It causes mass effect upon the 3rd ventricle and slight mass effect on the inferior aspect of the le ft lateral ventricle. There is no ventricular dilatation. No additional masses are identified. The re is no evidence of infarct.. . Midline shift: None. Brainstem/Cerebellum: Normal. Calvarium: Normal. Visualized Paranasal sinuses/Mastoids: Clear. IMPRESSION: 2.2 centimeter enhancing mass in the left thalamus with mass effect on the left lateral ventricle. F indings are consistent with a metastatic lesion.. RADIATION DOSE DELIVERED: Total DLP DATA REPOSITORY: All CT scans at this facility are submitted to the National Radiology Data Registry (NRDR) Dose Index Registry (DIR) with the [employer] ([employer]). RADIATION OPTIMIZATION: All CT scans at this facility use at least one of these dose optimization te chniques: automated exposure control; mA and/or kV adjustment per patient size (includes targeted exa ms where dose is matched to clinical indication); or iterative reconstruction.
--- NOTE | 2019-11-07 | DI.CT_ITS ---
EXAM: CT CHEST/ABD/PEL W CLINICAL HISTORY: SMALL CELL LUNG CA, RT, C34.91,F/U LLL NODULES, ASSESS. TECHNIQUE: Imaging Protocol: Axial computed tomography images with coronal and sagittal reformatted images were created and reviewed CONTRAST MATERIAL: Intravenous: Omnipaque 350 Contrast volume:100 cc Oral: yes COMPARISON: CT CT CHEST ABDOMEN PELVIS W CONTRAST (GENERIC) from 07/03/[address] CHEST W from 09/26/[address] CHEST W from 01/03/[address] CHEST/ABD/PEL W from 05/09/[address] CHEST/ABD/PEL W from 08/07/2019 FINDINGS: CHEST: Thyroid: Mediastinum and [place]: No dominant adenopathy or fluid collection. Pulmonary parenchyma: There has been no significant change in the posttherapy changes in the right up per lobe and around the right hilum. In no discrete mass is visible. Tiny nodules are again noted at the left lung base, unchanged. No new pulmonary nodules or adenopathy is seen. There is stable right pleural thickening the in the post treatment area.. Pleura: No effusion or pneumothorax. Lymph nodes: Within normal limits. Aorta: Thoracic portion non-dilated. Heart: Normal in size. Coronary artery calcifications are seen. Bones: Degenerative changes are seen in the spine. No lytic or blastic bony lesions are identified. ABDOMEN: Liver: Normal density. No measurable mass. Gallbladder and biliary tract: There is stable dilatation of the common bile duct and intrahepatic du cts. The gallbladder is unremarkable. Pancreas: Normal density, no abnormal calcifications or inflammatory process. Spleen: Normal. Kidneys: Normal size, contour and axis. No radiodense stones or obstructive uropathy. No masses seen. Adrenal glands: There is a stable low-density left adrenal lesion, likely an adenoma. Aorta: The aorta is calcified and mildly dilated distally, unchanged.. Lymph nodes: Within normal limits. PELVIS: Bladder: Symmetric distention, no gross wall thickening. Bowel: No obstruction or bowel wall thickening. Peritoneal cavity: No ascites, collection or mesenteric inflammatory response. Bones: Degenerative changes are seen in the spine. There is bilateral L5 spondylolysis and mild L5-S1 spondylolisthesis.. Reproductive organs: Within normal limits. There is a large left fatty containing inguinal hernia, unchanged. IMPRESSION: Stable appearance of posttherapy changes of the right upper lobe. Stable tiny pulmonary nodules at the left lung base. No new areas of metastatic disease is seen. RADIATION DOSE DELIVERED: Total DLP DATA REPOSITORY: All CT scans at this facility are submitted to the National Radiology Data Registry (NRDR) Dose Index Registry (DIR) with the [employer] (ACR). RADIATION OPTIMIZATION: All CT scans at this facility use at least one of these dose optimization te chniques: automated exposure control; mA and/or kV adjustment per patient size (includes targeted exa ms where dose is matched to clinical indication); or iterative reconstruction.
[2019-11-07] MEDS: Omnipaque 350 MG/ML 50 ML BTL PO (09:36)
[2019-11-07] MEDS: Omnipaque 350 MG/ML 100 ML BTL IV (10:26)
[2019-11-07] MEDS: Normal Saline - Diluent 50 ML VIAL IV (12:04)
== END 2019-11-07 02:00 ==
PROVIDERS: PCP Physician Assistant; Visit Provider Internal Medicine Hematology & Oncology
DX: C34.91 Malignant neoplasm of unspecified part of right bronchus or lung (principal); J98.4 Other disorders of lung; Z12.89 Encounter for screening for malignant neoplasm of other sites; C79.31 Secondary malignant neoplasm of brain
CPT/HCPCS: 74177; 70470; 71260; J3490; Q9967

== ENCOUNTER 2019-11-07 03:02 | Outpatient (CLI) | payer BC, SELFPAY ==
[2019-11-07 09:34] LABS: Absolute Basophil Count 0.02 k/cumm (0.0-0.2); Absolute Eosinophil Count 0.15 k/cumm (0.0-0.7); Absolute Lymphocyte Count 1.01 k/cumm (1.2-3.4); Absolute Monocyte Count 0.45 k/cumm (0.11-0.7); Basophils % 0.4; Eosinophils % 3.3; HCT 37.4 % (40.0-50.0); HGB 12.7 g/dL (13.5-17.5); Lymphocytes % 22.3; Mean Corpuscular Hemoglobin 31.6 pg (27.0-33.0); Mean Platelet Volume 9.3 fL (8.0-11.0); Monocytes % 9.9; Neutrophils % 64.1; Platelet Count 188 x1000/uL (130-400); RBC 4.02 m/cumm (4.50-6.00); RBC Distribution Width 13.7 % (11.8-14.1); White Blood Cell Count 4.53 k/cumm (4.4-10.8)
[2019-11-07 09:43] LABS: ALT 30 U/L (16-63); AST 23 U/L (15-37); Albumin 3.7 g/dL (3.4-5.0); Alkaline Phosphatase 126 U/L (46-116); Anion Gap 5.3 mmol/L (3-11); BUN 27 mg/dL (7-18); Bilirubin, Total 0.5 mg/dL (0.2-1.0); CO2 32.7 mmol/L (21.0-32.0); CREATININE 1.32 mg/dL (0.70-1.30); Calcium 9.1 mg/dL (8.5-10.1); Chloride 98 mmol/L (98-107); Estimated GFR 56.31 (mL/min/1.73m2); Glucose 96 mg/dL (74-106); Potassium 4.2 mmol/L (3.5-5.1); Sodium 136 mmol/L (136-145); Total Protein 8.1 g/dL (6.4-8.2)
== END 2019-11-07 03:22 ==
PROVIDERS: PCP Physician Assistant; Visit Provider Internal Medicine Hematology & Oncology
DX: C34.91 Malignant neoplasm of unspecified part of right bronchus or lung (principal)
CPT/HCPCS: 80053; 85025

== ENCOUNTER 2020-03-16 00:37 | Outpatient (CLI) | payer BC, SELFPAY ==
--- NOTE | 2020-03-16 | DI.CT_ITS ---
EXAM: CT HEAD WO/W CLINICAL HISTORY: H/O SMALL CELL LUNG CA, NEW VISION SYMPTOMS,S/P RADIATION FOR LT THALAMIC TECHNIQUE: Cranial CT was performed prior to and following intravenous infusion of 100 cc of Omnipaq ue 350. COMPARISON: CT CT HEAD WO/W from 11/07/[address] HEAD WO/W from 11/07/2019 FINDINGS: Examination is compared with prior brain MRI from [facility] of December 08 and also with prior cranial CT November 06. Previously described left thalamic lesion consistent with metastatic lung carcinoma is significantly smaller than on prior studies and is poorly defined and difficult to measure precisely, greatest diam eter roughly 14 millimeters. There is a focal rounded 5 millimeter area of increased attenuation seen in caudate nucleus/lateral v entricular border, which shows mild enhancement; this does not appear to have been present on prior e xaminations and is also suspicious for metastatic lesion. Note is also made of new areas of enhancement adjacent to the left side of the 4th ventricle and in t he region of the sylvian aqueduct, also suspicious for new metastatic disease. No change in ventricu lar size in comparison with the previous examination to suggest aqueductal obstruction. No other convincing enhancing lesion identified in the brain. There is grossly normal appearance of the [id number] vasculature except for calcified atheromatous plaque of the basilar and internal carotid arteries. The orbital and temporal bone structures appear intact. IMPRESSION: Interval decrease in prominence of left thalamic presumed metastatic lesion from lung carcinoma. Possible new lesions, right caudate nucleus and adjacent to 4th ventricle and sylvian aqueduct as vilma cribed above. RADIATION DOSE DELIVERED: 1,333.42mGy.cm Total DLP
[2020-03-16] MEDS: Omnipaque 350 MG/ML 100 ML BTL IJ (13:36)
[2020-03-16] MEDS: Normal Saline - Diluent 50 ML VIAL IV (13:36)
[2020-03-16] MEDS: Normal Saline Flush 10 ML SYR IVP (13:37)
== END 2020-03-16 00:57 ==
PROVIDERS: PCP Nurse Practitioner Family; Visit Provider Radiology Radiation Oncology
DX: G93.89 Other specified disorders of brain (principal); C34.90 Malignant neoplasm of unspecified part of unspecified bronchus or lung
CPT/HCPCS: 70470; J3490